=== PATIENT | female | born 1965 | race Caucasian/White ===

== ENCOUNTER 2017-03-22 16:32 | Emergency (ER) | payer SELFPAY ==
[2017-03-22 16:38] VITALS: BP 157/97; PULSE 114; RESP 22; TEMP 98; O2SAT 98
--- NOTE | 2017-03-22 16:56 | C.PDOC ---
History Of Present Illness 52 y/o female who became anxious and upset after hearing of 's while in the ER ( was cardiac arrest in our ER). Time Seen by Provider: 03/22/17 16:34 Chief Complaint (Nursing): Anxiety History Per: Patient History/Exam Limitations: no limitations Onset/Duration Of Symptoms: Mins Current Symptoms Are (Timing): Still Present Severity: Moderate Associated Symptoms: Other (grief reaction) Past Medical History Reviewed: Historical Data, Nursing Documentation, Vital Signs Vital Signs: Last Vital Signs Temp 98 F 03/22/17 16:36 Pulse 114 H 03/22/17 16:36 Resp 22 03/22/17 16:36 BP 157/97 H 03/22/17 16:36 Pulse Ox 98 03/22/17 17:07 - Medical History PMH: No Chronic Diseases Family History: States: No Known Family Hx - Social History Hx Alcohol Use: No Hx Substance Use: No - Immunization History Hx Tetanus Toxoid Vaccination: No Hx Influenza Vaccination: No Hx Pneumococcal Vaccination: No Review Of Systems Except As Marked, All Systems Reviewed And Found Negative. Cardiovascular: Negative for: Chest Pain, Palpitations Respiratory: Negative for: Shortness of Breath, Wheezing Gastrointestinal: Negative for: Vomiting Skin: Negative for: Rash Neurological: Negative for: Dizziness Psych: Positive for: Other (grief/sadness). Negative for: Suicidal ideation Physical Exam - Physical Exam Appears: Well, Non-toxic, Other (anxious, crying, tearful) Skin: Normal Color, Warm, Dry Head: Normacephalic Eye(s): bilateral: Normal Inspection, PERRL, EOMI Neck: Supple Cardiovascular: Rhythm Regular (tachycardic) Respiratory: Normal Breath Sounds, No Accessory Muscle Use, No Rales, No Rhonchi , No Wheezing Gastrointestinal/Abdominal: Normal Exam, Bowel Sounds, Soft, No Tenderness Back: Normal Inspection Extremity: Bilateral: Atraumatic, Normal Color And Temperature, Normal ROM Neurological/Psych: Oriented x3 Gait: Steady ED Course And Treatment O2 Sat by Pulse Oximetry: 98 (RA) Pulse Ox Interpretation: Normal Progress Note: Patient given PO Xanax. Reevaluation Time: 17:15 Reassessment Condition: Improved (On reassessment, patient is calm and states she feels better. Vitals have improved. Rx for Xanax given, and patient instructed to follow up with PMD/clinic in 1-2 days. She denies SI/HI.) Disposition Counseled Patient/Family Regarding: Diagnosis, Need For Followup, Rx Given - Disposition Referrals: [facility] [Outside] Disposition: HOME/ ROUTINE Disposition Time: 17:15 Condition: STABLE Additional Instructions: FOLLOW UP WITH YOUR DOCTOR IN 1-2 DAYS USE MEDICATION NEEDED RETURN TO ER IF YOU EXPERIENCE ANY CONCERNING SYMPTOMS Prescriptions: ALPRAZolam [Xanax] 0.25 mg PO Q6 PRN #15 tab PRN Reason: Anxiety Instructions: Grief and Loss (ED) Forms: [facility] (Slovak), General Discharge Instructions Print Language: ARMENIAN - POA Present On Arrival: None - Clinical Impression Clinical Impression: Grief reaction - Scribe Statement The provider has reviewed the documentation as recorded by the Cheriibjc Minaya Provider Attestation: All medical record entries made by the Scribe were at my direction and personally dictated by me. I have reviewed the chart and agree that the record accurately reflects my personal performance of the history, physical exam, medical decision making, and the department course for this patient. I have also personally directed, reviewed, and agree with the discharge instructions and disposition.
== END 2017-03-22 17:51 | disposition home or self-care (01) ==
LOC: C.ER 16:32
DX: F43.20 Adjustment disorder, unspecified (principal)